=== PATIENT | male | born 1970 | race Hispanic/Latino ===

== ENCOUNTER 2017-04-09 09:27 | Outpatient (CLI) | payer OTHER ==
--- NOTE | 2017-04-09 12:23 | XRay Report ---
CHEST TWO VIEWS: 04/09/17 09:27:00 CLINICAL: TB. COMPARISON: None FINDINGS: Normal heart and pulmonary vasculature. The lungs are normally expanded and clear except for mild thickening of the right lateral pleural on the frontal view. No airspace disease or pleural effusion.Mild degenerative changes in the spine. IMPRESSION: No acute cardiopulmonary process. Mild right lung scar. No signs of chronic or acute TB.
== END 2017-04-09 09:28 | disposition home or self-care (01) ==
LOC: SPVIMAG 09:27
PROVIDERS: ATTEND Specialist
DX: J98.4 Other disorders of lung (principal); M47.819 Spondylosis without myelopathy or radiculopathy, site unspecified
CPT/HCPCS: 71020